=== PATIENT | male | born 1950 | race Caucasian/White ===

== ENCOUNTER 2020-12-21 06:03 | Day surgery (SDC) | payer OTHER, SELFPAY ==
[2020-12-14 14:38] VITALS: BMI 42.4
--- NOTE | 2020-12-16 16:37 | MHC.SHP ---
Pre-Procedural Eval Section A The patient is an INPATIENT: No The History & Physical has been completed within 30 days and I have reviewed it.: Yes Section B Chief Complaint: Cataract Right Eye Allergies: Allergies Allergy/AdvReac Type Severity Reaction Status Date / Time diclofenac Allergy Intermediate bruising Verified 12/14/20 14:47 nifedipine Allergy Intermediate edema Verified 12/14/20 14:47 Zejhcfz-Hub-Ayr Reductase AdvReac Intermediate Muscle Pain Verified 12/14/20 14:47 Inhibitor triazolam AdvReac Intermediate sleep Verified 12/14/20 14:47 disturbance Plan Diagnosis/Plan: Unchanged I have reviewed the history and physical and performed a pertinent physical examination on my patient. No changes have occurred unless specified.
--- NOTE | 2020-12-18 09:12 | HO.ANESPROP2 ---
Documented by User: Brittany Caballero 12/18/20 09:13 HPI - Anesthesia Eval Consult details Narrative: 70yo M for Right Cataract Extraction IOL Insertion PCP cleared No prev cataract on record PMFSH Past Medical History Medical History Anemia Arthritis CAD (coronary artery disease) COVID-19 vaccine administered Diabetes Elevated cholesterol HTN (hypertension) Hx of bladder cancer Sleep apnea Thyroid disease Surgical History Surgical History H/O colonoscopy Hx of appendectomy Hx of cardiac catheterization Hx of cystoscopy Hx of lumbar discectomy Hx of shoulder surgery Hx of thyroidectomy Social History Social History Smoking Status: Former smoker Smoking Quit Date: 2000 Use of substances other than those prescribed or required for medical reasons: No Advance Directives Information Provided: No Meds Allergies Allergy/AdvReac Type Severity Reaction Status Date / Time diclofenac Allergy Intermediate bruising Verified 12/21/20 06:12 nifedipine Allergy Intermediate edema Verified 12/21/20 06:12 Zadchrf-Sha-Mbs Reductase AdvReac Intermediate Muscle Pain Verified 12/21/20 06:12 Inhibitor triazolam AdvReac Intermediate sleep Verified 12/21/20 06:12 disturbance Home Medications Medication Instructions Recorded Confirmed Last Taken Type albuterol sulfate 2.5 mg INHALATION Q4-6H PRN 12/14/20 12/14/20 Unknown History albuterol sulfate [ProAir HFA] 1 puff INHALATION QID PRN 12/14/20 12/14/20 Unknown History amlodipine 10 mg PO DAILY 12/14/20 12/14/20 12/21/20 05:00 History aspirin [Aspirin Low-Strength] 81 mg PO DAILY 12/14/20 12/14/20 Unknown History citalopram 20 mg PO DAILY 12/14/20 12/14/20 12/21/20 05:00 History cyanocobalamin (vitamin B-12) 1,000 mcg PO DAILY 12/14/20 12/14/20 Unknown History [Vitamin B-12] ferrous sulfate [FeroSul] 325 mg PO DAILY 12/14/20 12/14/20 Unknown History furosemide 40 mg PO DAILY 12/14/20 12/14/20 Unknown History isosorbide mononitrate 30 mg PO DAILY 12/14/20 12/14/20 12/21/20 05:00 History isosorbide mononitrate 60 mg PO DAILY 12/14/20 12/14/20 12/21/20 05:00 History levothyroxine 137 mcg PO DAILY 12/14/20 12/14/20 12/21/20 05:00 History lisinopril 40 mg PO DAILY 12/14/20 12/14/20 Unknown History metformin 750 mg PO DAILY 12/14/20 12/14/20 Unknown History nitroglycerin [Nitrostat] 0.3 mg SUBLINGUAL Q5M PRN 12/14/20 12/14/20 Unknown History quetiapine [Seroquel] 50 mg PO BEDTIME 12/14/20 12/14/20 Unknown History rosuvastatin 20 mg PO DAILY 12/14/20 12/14/20 Unknown History Exam Exam Date and Time: December 18, 2020 0912 Height,Weight and Vital Signs: Height 5 ft 5 in Weight 115.666 kg Assessment and Plan Assessment Anesthesia Assessment: Chart Reviewed Documented by User: Josie Cortes 12/21/20 07:20 PMFSH Past Medical History Medical History Anemia Arthritis CAD (coronary artery disease) COVID-19 vaccine administered Diabetes Elevated cholesterol HTN (hypertension) Hx of bladder cancer Sleep apnea Thyroid disease Surgical History Surgical History H/O colonoscopy Hx of appendectomy Hx of cardiac catheterization Hx of cystoscopy Hx of lumbar discectomy Hx of shoulder surgery Hx of thyroidectomy Social History Social History Smoking Status: Former smoker Smoking Quit Date: 2000 Use of substances other than those prescribed or required for medical reasons: No Advance Directives Information Provided: No Meds Allergies Allergy/AdvReac Type Severity Reaction Status Date / Time diclofenac Allergy Intermediate bruising Verified 12/21/20 06:12 nifedipine Allergy Intermediate edema Verified 12/21/20 06:12 Ouceeae-Wiz-Mbn Reductase AdvReac Intermediate Muscle Pain Verified 12/21/20 06:12 Inhibitor triazolam AdvReac Intermediate sleep Verified 12/21/20 06:12 disturbance Home Medications Medication Instructions Recorded Confirmed Last Taken Type albuterol sulfate 2.5 mg INHALATION Q4-6H PRN 12/14/20 12/14/20 Unknown History albuterol sulfate [ProAir HFA] 1 puff INHALATION QID PRN 12/14/20 12/14/20 Unknown History amlodipine 10 mg PO DAILY 12/14/20 12/14/20 12/21/20 05:00 History aspirin [Aspirin Low-Strength] 81 mg PO DAILY 12/14/20 12/14/20 Unknown History citalopram 20 mg PO DAILY 12/14/20 12/14/20 12/21/20 05:00 History cyanocobalamin (vitamin B-12) 1,000 mcg PO DAILY 12/14/20 12/14/20 Unknown History [Vitamin B-12] ferrous sulfate [FeroSul] 325 mg PO DAILY 12/14/20 12/14/20 Unknown History furosemide 40 mg PO DAILY 12/14/20 12/14/20 Unknown History isosorbide mononitrate 30 mg PO DAILY 12/14/20 12/14/20 12/21/20 05:00 History isosorbide mononitrate 60 mg PO DAILY 12/14/20 12/14/20 12/21/20 05:00 History levothyroxine 137 mcg PO DAILY 12/14/20 12/14/20 12/21/20 05:00 History lisinopril 40 mg PO DAILY 12/14/20 12/14/20 Unknown History metformin 750 mg PO DAILY 12/14/20 12/14/20 Unknown History nitroglycerin [Nitrostat] 0.3 mg SUBLINGUAL Q5M PRN 12/14/20 12/14/20 Unknown History quetiapine [Seroquel] 50 mg PO BEDTIME 12/14/20 12/14/20 Unknown History rosuvastatin 20 mg PO DAILY 12/14/20 12/14/20 Unknown History Exam Airway Mallampati Class: III Denture: Upper Partial: Upper and Lower
[2020-12-21 06:13] VITALS: BP 119/72; PULSE 64; RESP 18; TEMP 36.6; O2SAT 95
[2020-12-21 06:26] LABS: Glucose, Whole Blood 161 mg/dL (60-115)
[2020-12-21] MEDS: Tetracaine HCl/PF 0.5% Oph Sol 4 ML DROPS 1 DROP EYE-RIGHT (06:31)
[2020-12-21] MEDS: Lactated Ringers 500 ML 50 ML IV (06:32)
[2020-12-21] MEDS: Tropicamide 1 % Ophth Sol 3 ML BTL 1 DROP EYE-RIGHT ×3 (06:34→06:45)
[2020-12-21] MEDS: Phenylephrine HCL 2.5% Oph SoL 2 ML BOTTLE 1 DROP EYE-RIGHT ×3 (06:36→06:46)
--- NOTE | 2020-12-21 07:14 | HO.PNOPHT ---
Ophthalmology Procedure Procedure Date of Service: 12/21/20 Ophthalmology Viscoelastic: Jessie Cavanaught Dual Pack Pro Ophthalmology Lenses: TECJIGNA [id number] (21) Procedure Notes: PREOPERATIVE DIAGNOSIS: Decreased visual acuity right eye secondary to cataract POSTOPERATIVE DIAGNOSIS: Same PROCEDURE: Right cataract extraction with intraocular lens insertion SURGEON: Zac Patten M.D. ANESTHESIA: Topical/MAC ESTIMATED BLOOD LOSS: None COMPLICATIONS: None After obtaining informed consent, the patient was brought to the operating room suite and placed in the supine position. After adequate sedation per anesthesia, topical drops of Tetracaine were given to the right eye. The eye was then prepped and draped in the usual sterile fashion. The operating room microscope was then positioned over the operative eye and a lid speculum placed. A paracentesis was created. Viscoelastic was then instilled into the anterior chamber. A three plane incision was then created temporally, utilizing a 2.85 mm keratome. Capsulotomy forceps were then utilized to create a circular tear capsulotomy. Hydrodissection and hydrodelineation were carried out until adequate mobilization of the nucleus occurred. Phacoemulsification was then utilized to remove the dense central nucleus followed by removal of the cortical material utilizing the automated aspiration irrigation unit. Viscoelastic was instilled into the posterior capsular bag followed by placement of a posterior chamber intraocular lens without difficulty. The residual Viscoelastic was then removed utilizing the automated IA machine. The wound was checked and found to be watertight. The patient tolerated the procedure well and the lid speculum was removed. Intracameral injection of Vigamox 0.1 mL followed by a subtenon injection of Kenalog-40 0.2 mL were administered. The patient will be seen in the a.m.
[2020-12-21 07:50] VITALS: BP 110/57; PULSE 58; RESP 20; TEMP 36.4; O2SAT 97
== END 2020-12-21 08:15 | disposition home or self-care (01) ==
PROVIDERS: PCP Internal Medicine; Visit Provider Ophthalmology
PROC: (CPT 66985; principal; 2020-12-21 07:30)
DX: H25.041 Posterior subcapsular polar age-related cataract, right eye (principal); H54.7 Unspecified visual loss; I10 Essential (primary) hypertension; E11.9 Type 2 diabetes mellitus without complications; G47.33 Obstructive sleep apnea (adult) (pediatric); Z79.899 Other long term (current) drug therapy; Z79.84 Long term (current) use of oral hypoglycemic drugs; Z87.891 Personal history of nicotine dependence
CPT/HCPCS: 66984; 82947; J2250; J3010; J3300; V2632

== ENCOUNTER 2022-05-30 07:46 | Day surgery (SDC) | payer OTHER, SELFPAY ==
[2022-05-24 14:18] VITALS: BMI 43.4
--- NOTE | 2022-05-26 15:27 | MHC.SHP ---
Pre-Procedural Eval Section A Date of Service: 05/26/22 The patient is an INPATIENT: No Changes since office visit: No Cold of Flu in the past 2 weeks, No New Medical Problems, No Changes in Medication and No Patient answered all questions The History & Physical has been completed within 30 days and I have reviewed it.: Yes Section B Chief Complaint: cataract Allergies: Allergies Allergy/AdvReac Type Severity Reaction Status Date / Time diclofenac Allergy Intermediate bruising Verified 12/21/20 06:12 nifedipine Allergy Intermediate edema Verified 12/21/20 06:12 triazolam AdvReac Intermediate sleep Verified 12/21/20 06:12 disturbance atorvastatin AdvReac Muscle Pain Verified 05/24/22 14:17 Plan Diagnosis/Plan: Unchanged I have reviewed the history and physical and performed a pertinent physical examination on my patient. No changes have occurred unless specified.
--- NOTE | 2022-05-27 08:46 | HO.ANESPROP2 ---
Documented by User: Brittany Caballero NP 05/27/22 08:47 HPI - Anesthesia Eval Consult details Narrative: 72yo M for Left Cataract Extraction IOL Insertion PCP cleared Right eye 12/2020 with TIVA: Fent 50, Midaz 1 PMFSH Past Medical History Medical History Anemia Arthritis CAD (coronary artery disease) Cataract COVID-19 vaccine administered Diabetes Elevated cholesterol HTN (hypertension) Hx of bladder cancer Sleep apnea Thyroid disease Surgical History Surgical History H/O colonoscopy History of total left knee replacement Hx of appendectomy Hx of cardiac catheterization Hx of cystoscopy Hx of lumbar discectomy Hx of right cataract extraction Hx of shoulder surgery Hx of thyroidectomy Social History Social History Are you a primary healthcare management to a significant other at home: Yes ( has CATH LAB RADIOLOGY TECHNICIAN) Do you presently have visiting nurse or other home services: No Patient Tobacco Use Status: Former Tobacco user Quit Date: >20 years ago Tobacco use type: Cigarette Use of substances other than those prescribed or required for medical reasons: No Are you DNR?: No Advance Directives: No Advance Directives Information Provided: Yes Advance Directives on File: No Recently lost weight without trying: No Nutrition Risks: No Nutritional Risk Meds Allergies Allergy/AdvReac Type Severity Reaction Status Date / Time diclofenac Allergy Intermediate bruising Verified 12/21/20 06:12 nifedipine Allergy Intermediate edema Verified 12/21/20 06:12 triazolam AdvReac Intermediate sleep Verified 12/21/20 06:12 disturbance atorvastatin AdvReac Muscle Pain Verified 05/24/22 14:17 Home Medications Medication Instructions Recorded Confirmed Last Taken Type albuterol sulfate 2.5 mg/3 mL 2.5 mg inhalation Q4-6H PRN 12/14/20 05/24/22 Unknown History (0.083 %) solution for nebulization Shortness Of Breath albuterol sulfate 90 mcg/actuation 1 puff inhalation QID PRN 12/14/20 05/24/22 Unknown History aerosol inhaler (ProAir HFA) Shortness Of Breath amlodipine 10 mg tablet 10 mg PO DAILY 12/14/20 05/24/22 12/21/20 05:00 History aspirin 81 mg tablet,delayed 81 mg PO DAILY 12/14/20 05/24/22 Unknown History release citalopram 20 mg tablet 20 mg PO DAILY 12/14/20 05/24/22 12/21/20 05:00 History ferrous sulfate 325 mg (65 mg 325 mg PO DAILY 12/14/20 05/24/22 Unknown History iron) tablet (FeroSul) furosemide 40 mg tablet 40 mg PO DAILY 12/14/20 05/24/22 Unknown History isosorbide mononitrate 60 mg 90 mg PO DAILY 12/14/20 05/24/22 12/21/20 05:00 History tablet,extended release 24 hr nitroglycerin 0.3 mg sublingual 0.3 mg sublingual Q5M PRN Chest 12/14/20 05/24/22 Unknown History tablet (Nitrostat) Pain quetiapine 50 mg tablet (Seroquel) 100 mg PO BEDTIME 12/14/20 05/24/22 Unknown History rosuvastatin 20 mg tablet 20 mg PO BEDTIME 12/14/20 05/24/22 Unknown History clonazepam 1 mg tablet 1 tab PO BID 05/24/22 05/24/22 Unknown History empagliflozin 25 mg tablet 1 tab PO QAM 05/24/22 05/24/22 Unknown History (Jardiance) glipizide 5 mg tablet 1 tab PO BID 05/24/22 05/24/22 Unknown History levothyroxine 175 mcg tablet 1 tab PO DAILY 05/24/22 05/24/22 Unknown History Exam Exam Date and Time: May 27, 2022 0846 Height,Weight and Vital Signs: Height 5 ft 6 in Weight 122.016 kg Assessment and Plan Assessment Anesthesia Assessment: Chart Reviewed Documented by User: Bradley Funk MD 05/30/22 10:14 [facility] Past Medical History Medical History Anemia Arthritis CAD (coronary artery disease) Cataract COVID-19 vaccine administered Diabetes Elevated cholesterol HTN (hypertension) Hx of bladder cancer Sleep apnea Thyroid disease Family History Family history of problems with anesthesia: No Surgical History Surgical History H/O colonoscopy History of total left knee replacement Hx of appendectomy Hx of cardiac catheterization Hx of cystoscopy Hx of lumbar discectomy Hx of right cataract extraction Hx of shoulder surgery Hx of thyroidectomy History of Problems with Anesthesia: No Social History Social History Are you a primary healthcare management to a significant other at home: Yes ( has CATH LAB RADIOLOGY TECHNICIAN) Do you presently have visiting nurse or other home services: No Patient Tobacco Use Status: Former Tobacco user Quit Date: >20 years ago Tobacco use type: Cigarette Use of substances other than those prescribed or required for medical reasons: No Are you DNR?: No Advance Directives: No Advance Directives Information Provided: Yes Advance Directives on File: No Recently lost weight without trying: No Nutrition Risks: No Nutritional Risk Meds Allergies Allergy/AdvReac Type Severity Reaction Status Date / Time diclofenac Allergy Intermediate bruising Verified 12/21/20 06:12 nifedipine Allergy Intermediate edema Verified 12/21/20 06:12 triazolam AdvReac Intermediate sleep Verified 12/21/20 06:12 disturbance atorvastatin AdvReac Muscle Pain Verified 05/24/22 14:17 Home Medications Medication Instructions Recorded Confirmed Last Taken Type albuterol sulfate 2.5 mg/3 mL 2.5 mg inhalation Q4-6H PRN 12/14/20 05/24/22 Unknown History (0.083 %) solution for nebulization Shortness Of Breath albuterol sulfate 90 mcg/actuation 1 puff inhalation QID PRN 12/14/20 05/24/22 Unknown History aerosol inhaler (ProAir HFA) Shortness Of Breath amlodipine 10 mg tablet 10 mg PO DAILY 12/14/20 05/24/22 12/21/20 05:00 History aspirin 81 mg tablet,delayed 81 mg PO DAILY 12/14/20 05/24/22 Unknown History release citalopram 20 mg tablet 20 mg PO DAILY 12/14/20 05/24/22 12/21/20 05:00 History ferrous sulfate 325 mg (65 mg 325 mg PO DAILY 12/14/20 05/24/22 Unknown History iron) tablet (FeroSul) furosemide 40 mg tablet 40 mg PO DAILY 12/14/20 05/24/22 Unknown History isosorbide mononitrate 60 mg 90 mg PO DAILY 12/14/20 05/24/22 12/21/20 05:00 History tablet,extended release 24 hr nitroglycerin 0.3 mg sublingual 0.3 mg sublingual Q5M PRN Chest 12/14/20 05/24/22 Unknown History tablet (Nitrostat) Pain quetiapine 50 mg tablet (Seroquel) 100 mg PO BEDTIME 12/14/20 05/24/22 Unknown History rosuvastatin 20 mg tablet 20 mg PO BEDTIME 12/14/20 05/24/22 Unknown History clonazepam 1 mg tablet 1 tab PO BID 05/24/22 05/24/22 Unknown History empagliflozin 25 mg tablet 1 tab PO QAM 05/24/22 05/24/22 Unknown History (Jardiance) glipizide 5 mg tablet 1 tab PO BID 05/24/22 05/24/22 Unknown History levothyroxine 175 mcg tablet 1 tab PO DAILY 05/24/22 05/24/22 Unknown History Exam Airway Mallampati Class: III TM Dist: >3cm Neck ROM: Full Denture: Upper and Lower Loose/Missing/Broken Teeth: Yes Heart: [id number] Lungs: cta b/l Assessment and Plan Assessment Anesthesia Assessment: Anesthesia Plan Discussed Final Anesthetic Review Family History of Problems with Anesthesia: No History of Problems with Anesthesia: No NPO: Yes ASA Class: III Final Preanesthetic Review: No Changes in Pt Med Stat, Meds/Allgs Chart Reviewed, Consent Obtained/Reviewed and Anes Risks/Benef Reviewed Patient Risk: Intermediate Procedure Risk: Low Assessment/Block/Sedation in SS: Assess/Block/Sedation-SS Anesthetic Plan Anesthetic Plan: MAC: and Agree w/ Assess. and Plan Disposition: Standard PACU
[2022-05-30 09:36] VITALS: BP 123/69; PULSE 46; RESP 16; TEMP 36.2; O2SAT 95
[2022-05-30 09:42] LABS: Glucose, Whole Blood 109 mg/dL (60-115)
[2022-05-30] MEDS: Tetracaine HCl/PF 0.5% Oph Sol 4 ML DROPS 1 DROP EYE-LEFT (09:46)
[2022-05-30] MEDS: Cyclopentolate 1 % Ophth Sol 2 ML DRPBTL 1 DROP EYE-LEFT ×3 (09:48→10:05)
[2022-05-30] MEDS: Tropicamide 1 % Ophth Sol 3 ML BTL 1 DROP EYE-LEFT ×3 (09:50→10:06)
[2022-05-30] MEDS: Ketorolac Tromethamine 0.5% Op 5 ML DROPS 1 DROP EYE-LEFT ×3 (09:51→10:07)
[2022-05-30] MEDS: Phenylephrine HCL 2.5% Oph SoL 2 ML BOTTLE 1 DROP EYE-LEFT ×3 (09:53→10:09)
[2022-05-30] MEDS: Lactated Ringers 500 ML 50 ML IV (10:09)
--- NOTE | 2022-05-30 11:29 | HO.PNOPHT ---
Ophthalmology Procedure Procedure Date of Service: 05/30/22 Ophthalmology Viscoelastic: Heallily Duet Dual Pack Pro Ophthalmology Lenses: TECJIGNA [id number] (21) Procedure Notes: PREOPERATIVE DIAGNOSIS: Decreased visual acuity left eye secondary to cataract POSTOPERATIVE DIAGNOSIS: Same PROCEDURE: Left cataract extraction with intraocular lens insertion SURGEON: Zac Patten M.D. ANESTHESIA: Topical/MAC ESTIMATED BLOOD LOSS: None COMPLICATIONS: None After obtaining informed consent, the patient was brought to the operation room suite and placed in the supine position. After adequate sedation per anesthesia, topical drops of Tetracaine were given to the left eye. The eye was then prepped and draped in the usual sterile fashion. The operating room microscope was then positioned over the operative eye and a lid speculum placed. A paracentesis was created. Viscoelastic was then instilled into the anterior chamber. A three plane incision was then created temporally, utilizing a 2.85 mm keratome. Capsulotomy forceps were then utilized to create a circular tear capsulotomy. Hydrodissection and hydrodelineation were carried out until adequate mobilization of the nucleus occurred. Phacoemulsification was then utilized to remove the dense central nucleus followed by removal of the cortical material utilizing the automated aspiration irrigation unit. Viscoat elastic was instilled into the posterior capsular bag followed by placement of a posterior chamber intraocular lens without difficulty. The residual Viscoat elastic was then removed utilizing the automated IA machine. The wound was check and found to be watertight. The patient tolerated the procedure well and the lid speculum was removed. A drop of Vigamox 0.1 mL followed by a subtenon injection of Kenalog-40 0.2 mL were administered. The patient will be seen in the a.m.
[2022-05-30 11:55] VITALS: BP 150/87; PULSE 53; RESP 18; TEMP 36.1; O2SAT 96
== END 2022-05-30 12:19 | disposition home or self-care (01) ==
PROVIDERS: PCP Internal Medicine; Visit Provider Ophthalmology
PROC: (CPT 66985; principal; 2022-05-30 10:30)
DX: H25.12 Age-related nuclear cataract, left eye (principal); I10 Essential (primary) hypertension; E11.9 Type 2 diabetes mellitus without complications; E03.9 Hypothyroidism, unspecified; E78.00 Pure hypercholesterolemia, unspecified; J45.909 Unspecified asthma, uncomplicated; Z79.84 Long term (current) use of oral hypoglycemic drugs; Z79.82 Long term (current) use of aspirin; Z79.899 Other long term (current) drug therapy; Z88.8 Allergy status to other drugs, medicaments and biological substances; Z87.891 Personal history of nicotine dependence
CPT/HCPCS: 66984; 82947; J2250; J3300; V2632